=== PATIENT | male | born 1990 | race Caucasian/White ===

== ENCOUNTER 2021-11-30 18:25 | Emergency (ER) | payer SELFPAY ==
[~2021-11-30] VITALS: Ht 190.5 cm; Wt 100.0 kg
[2021-11-30 18:59] VITALS: BP 122/70
[2021-11-30] MEDS ORDERED: LEVO750T68 PO (19:06)
[2021-11-30 19:19] LABS: APPEARANCE,URINE TURBID (CLEAR); BILIRUBIN,URINE NEGATIVE (NEGATIVE); GLUCOSE, URINE (UA) NEGATIVE (NEGATIVE); KETONES,URINE =>150 mg/dL (NEGATIVE); LEUKOCYTE ESTERASE ,URINE LARGE (NEGATIVE); NITRATE,URINE POSITIVE (NEGATIVE); OCCULT BLOOD,URINE LARGE (NEGATIVE); PH,URINE 5.5 (5.0-8.0); PROTEIN,URINE 100-200,SEE CONFIRM mg/dL (NEGATIVE); SPECIFIC GRAVITIY, URINE 1.016 (1.003-1.030); UROBILINOGEN,URINE <=1.0 mg/dL (<=1.0)
[2021-11-30 19:33] LABS: SULFOSALICYLIC ACID,URINE 1+ (Negative)
[2021-11-30 19:35] LABS: BACTERIA,URINE Few /HPF (None Seen); MUCUS,URINE Few LPF (None Seen); WBC,URINE >100 /HPF (0-5)
== END 2021-11-30 19:09 | disposition home or self-care (01) ==
LOC: EMS 18:32
DX: N12 Tubulo-interstitial nephritis, not specified as acute or chronic (principal)
CPT/HCPCS: 81001; 81002; 87086; 99283